=== PATIENT | female | born 1970 | race Caucasian/White ===

== ENCOUNTER → 2017-05-15 | Outpatient (CLI) | payer BC ==
[~2017-05-15] MED LIST: ASCO10003 PO; CHOL100010 PO; DIPH25CA37 PO; FLUO20CA35 PO; MULT-506 PO
--- NOTE | 2017-05-16 07:45 | MAMMOGRAPHY REPORT ---
BILATERAL DIGITAL SCREENING MAMMOGRAM TOMOSYNTHESIS WITH CAD: 05/15/2017 CLINICAL HISTORY: Routine screening. TECHNIQUE: Breast tomosynthesis in addition to standard 2D mammography was performed. Current study was also evaluated with a Computer Aided Detection (CAD) system. COMPARISON: Comparison is made to exams dated: 05/11/2016 mammogram, 05/10/2015 mammogram, 05/07/2014 randy mogram, 05/05/2013 mammogram, 05/03/2012 mammogram, and 05/02/2011 mammogram - [facility]. BREAST COMPOSITION: The tissue of both breasts is heterogeneously dense, which may obscure small mas ses. FINDINGS: The parenchymal pattern is similar to prior mammograms. There are a few scattered stable benign-appearing microcalcifications. No developing mass, architectural distortion or cluster of rashmi picious microcalcifications is seen in either breast. IMPRESSION: ACR BI-RADS CATEGORY 2: BENIGN There is no mammographic evidence of malignancy. A 1 year screening mammogram is recommended. The pa tient will receive written notification of the results. Approximately 10% of breast cancers are not detected with mammography. A negative mammographic report should not delay biopsy if a clinically suggestive mass is present. Delmy Zazueta M.D. ay/:05/15/2017 17:36:59 Hardware Engineer: Ferny AUSTIN)(M), [facility] letter sent: Normal 1/2 BI-RADS Code: ACR BI-RADS Category 2: Benign
== END | disposition home or self-care (01) ==
LOC: C.MAMM 07:19
PROVIDERS: ATTEND Family Medicine
DX: Z12.31 Encounter for screening mammogram for malignant neoplasm of breast (principal)

== ENCOUNTER → 2017-08-17 | Outpatient (CLI) | payer BC ==
--- NOTE | 2017-08-17 09:43 | DIAGNOSTIC IMAGING REPORT ---
ULTRASOUND OF THE PELVIS CLINICAL HISTORY: Left pelvic pain. COMPARISON STUDY: Pelvic ultrasound dated 05/17/2012. TECHNIQUE: Real-time, grayscale, and color flow sonography of the pelvis is performed both transabdominally and endovaginally. Images are reviewed in the transverse and longitudinal planes. FINDINGS: Uterus: The uterus is surgically absent Ovaries: The left ovary is normal in appearance, measuring 2.1 x 1.3 x 1.0 cm. Normal Doppler waveforms are shown within the left ovary. The right ovary is not identified and reported surgically absent. Pelvis: There is no free fluid in the cul-de-sac. No concerning adnexal lesion is seen. IMPRESSION: 1. Unremarkable sonographic assessment of the left ovary. 2. The uterus and right ovary are not identified and reported surgically absent. 3. No adnexal lesion is seen. Electronically signed by: Cody White M.D. 08/17/2017 9:42 AM Dictated Date/Time: 08/17/2017 9:40 AM
== END | disposition home or self-care (01) ==
LOC: C.ULTR 08:15
PROVIDERS: ATTEND Obstetrics & Gynecology
DX: R10.32 Left lower quadrant pain (principal)

== ENCOUNTER → 2018-01-04 | Outpatient (CLI) | payer OTHER ==
--- NOTE | 2018-01-04 08:55 | DIAGNOSTIC IMAGING REPORT ---
(BARIUM SWALLOW) ESOPHAGUS CLINICAL HISTORY: Dysphagia. COMPARISON STUDY: None. FLUOROSCOPY TIME: 0.8 minutes. FINDINGS: 22 fluoroscopic images were obtained. Normal esophageal motility is noted. No esophageal mass or stricture is identified. A 13 mm barium tablet passed into the stomach. No reflux was elicited. There is no hiatal hernia. IMPRESSION: Unremarkable barium swallow. Electronically signed by: Neymar Condon M.D. 01/04/2018 8:54 AM Dictated Date/Time: 01/04/2018 8:53 AM
== END | disposition home or self-care (01) ==
LOC: C.RAD 07:59
PROVIDERS: ATTEND Internal Medicine
DX: R13.10 Dysphagia, unspecified (principal)

== ENCOUNTER → 2018-05-20 | Outpatient (CLI) | payer OTHER ==
--- NOTE | 2018-05-20 13:10 | MAMMOGRAPHY REPORT ---
BILATERAL DIGITAL SCREENING MAMMOGRAM TOMOSYNTHESIS WITH CAD: 05/20/2018 CLINICAL HISTORY: Routine screening. Patient has no complaints. TECHNIQUE: The study was acquired using full field digital technology and interpreted from soft copy. Breast tomosynthesis in addition to standard 2D mammography was performed. Current study was also ev aluated with a Computer Aided Detection (CAD) system. COMPARISON: Comparison is made to exams dated: 05/15/2017 mammogram, 05/11/2016 mammogram, 05/10/2015 mamm ogram, 05/05/2013 mammogram, 05/03/2012 mammogram, and 05/02/2011 mammogram - [facility] er. BREAST COMPOSITION: The tissue of both breasts is heterogeneously dense, which may obscure small mass es. FINDINGS: There are stable intramammary lymph nodes in each upper outer quadrant. Scattered benign-a ppearing round calcifications. No suspicious mass, architectural distortion or cluster of microcalcif ications is seen. IMPRESSION: ACR BI-RADS CATEGORY 1: NEGATIVE There is no mammographic evidence of malignancy. A 1 year screening mammogram is recommended.( [id number]) The patient will receive written notification of the results. Some breast cancers are not detected with mammography. A negative mammographic report should not isaiah y biopsy if a clinically suggestive mass is present. Delmy Zazueta M.D. ay/:05/20/2018 09:21:37 Horticulture Instructor: RT Brigette(Gera)(M), [facility] letter sent: Normal 1/2 BI-RADS Code: ACR BI-RADS Category 1: Negative
== END | disposition home or self-care (01) ==
LOC: C.MAMM 07:23
PROVIDERS: ATTEND Internal Medicine
DX: Z12.31 Encounter for screening mammogram for malignant neoplasm of breast (principal)